=== PATIENT | male | born 1955 | race Caucasian/White ===

== ENCOUNTER 2018-01-21 16:58 | Inpatient (IN) | payer BC ==
[~2018-01-21] VITALS: Ht 170.2 cm; Wt 130.6 kg
[2018-01-21 17:07] VITALS: BP_SYST 133
[2018-01-21 17:36] LABS: BASOPHILS # (AUTO) 0.1 K/uL (0.0-0.2); BASOPHILS % (AUTO) 1.1 % (0.0-2.0); EOSINOPHILS # (AUTO) 0.2 K/uL (0.0-0.4); HEMATOCRIT 43.4 % (36-54); HEMOGLOBIN 14.2 g/dL (14.0-18.0); MEAN CORPUSCULAR HEMOGLOBIN 28 pg (27-31); MEAN CORPUSCULAR HGB CONC 33 % (32-36); MEAN CORPUSCULAR VOLUME 87 fL (79.0-98.0); MONOCYTES # (AUTO) 0.7 K/uL (0.0-1.0); MONOCYTES % (AUTO) 8.2 % (1.7-9.3); NEUTROPHILS # (AUTO) 5.7 K/uL (1.8-7.7); NEUTROPHILS % (AUTO) 65.7 % (40.0-70.0); PLATELET COUNT (AUTO) 269 K/uL (130-430); RED BLOOD CELL COUNT(AUTO) 4.99 MIL/uL (4.2-6.2); RED CELL DISTRIBUTION WIDTH 12.7 % (9.0-15.0); WHITE BLOOD COUNT (AUTO) 8.7 K/uL (4.8-10.8)
[2018-01-21 17:50] LABS: CALCIUM 9.6 mg/dL (8.4-11.0); CREATININE 1.03 mg/dL (0.55-1.30); POTASSIUM 3.9 mmol/L (3.5-5.1)
[2018-01-21 17:55] LABS: ALBUMIN 3.9 g/dL (3.4-4.8); TOTAL BILIRUBIN 0.4 mg/dL (0.0-1.0)
[2018-01-21 17:55] LABS: BILIRUBIN,URINE NEGATIVE (NEGATIVE); BLOOD, URINE NEGATIVE (NEGATIVE); CLARITY/URINE CLEAR (CLEAR); COLOR,URINE YELLOW (YELLOW); GLUCOSE,URINE NEGATIVE (NEGATIVE); KETONES,URINE NEGATIVE (NEGATIVE); LEUKOCYTE ESTERASE ,URINE NEGATIVE (NEGATIVE); NITRITE, URINE NEGATIVE (NEGATIVE); PROTEIN URINE NEGATIVE (NEGATIVE); UROBILINOGEN,URINE 0.2 (0.2-1.0)
[2018-01-21] MEDS ORDERED: ASPIRIN 81 MG TAB.CHEW PO ONE (19:30)
[2018-01-21] MEDS ORDERED: NITROGLYCERIN 1 INCH (GM) OINT. TP ONE (19:30)
[2018-01-21] MEDS ORDERED: METF-510 PO (19:50)
[2018-01-21] MEDS ORDERED: GLUXR500 PO (19:50)
[2018-01-21] MEDS ORDERED: GLIP2.5T3 PO (19:51)
[2018-01-21] MEDS ORDERED: SIMV10TA2 PO (19:51)
[2018-01-21] MEDS ORDERED: ASPI-1063 PO (19:51)
[2018-01-21 20:00] VITALS: BP_SYST 138
[2018-01-21 20:08] VITALS: BP_SYST 138
[2018-01-21] MEDS ORDERED: POTASSIUM CHLORIDE 20 MEQ TAB.PRT.SR PO PRN (20:15)
[2018-01-21] MEDS ORDERED: DEXTROSE 50% JECT 50 ML DISP.SYRIN IVP PRN (20:15)
[2018-01-21] MEDS ORDERED: ONDANSETRON HCL 4 MG/2 ML VIAL IVP PRN (20:15)
[2018-01-21] MEDS ORDERED: MUPIROCIN 2% TOPICAL OINTMENT 22 GM NS PRN (20:15)
[2018-01-21] MEDS ORDERED: DOCUSATE SODIUM 100 MG CAPSULE PO PRN (20:15)
[2018-01-21] MEDS ORDERED: ZOLPIDEM TARTRATE 5 MG TABLET PO PRN (20:15)
[2018-01-21] MEDS ORDERED: MAGNESIUM SULFATE 50 ML IV PRN (20:15)
[2018-01-21] MEDS ORDERED: INSULIN ASPART 100 UNITS/ML, 10 ML VIAL (NovoLOG) SUBCUT PRN (20:15)
[2018-01-21] MEDS ORDERED: LORazepam 2 MG/ML VIAL IVP PRN (20:15)
[2018-01-21] MEDS ORDERED: MORPHINE 2 MG/ML INJ. SYRINGE IVP PRN ×2 (20:15)
[2018-01-21] MEDS ORDERED: ACETAMINOPHEN 325 MG TABLET PO PRN (20:15)
[2018-01-21] MEDS: NACL 0.9% 1,000 ML IV SCH (20:59)
[2018-01-21] MEDS ORDERED: SIMVASTATIN 10 MG TABLET PO SCH (21:00)
[2018-01-21] MEDS: HEPARIN SODIUM,PORCINE 5000 UNITS/ML VIAL SUBCUT SCH (23:29)
[2018-01-22 05:38] VITALS: BP_SYST 105
[2018-01-22 07:02] LABS: BASOPHILS % (AUTO) 0.7 % (0.0-2.0); EOSINOPHILS # (AUTO) 0.2 K/uL (0.0-0.4); EOSINOPHILS % (AUTO) 3.4 % (0.0-4.0); HEMATOCRIT 36.6 % (36-54); HEMOGLOBIN 12.6 g/dL (14.0-18.0); LYMPHOCYTES # (AUTO) 2.1 K/uL (1.0-5.5); LYMPHOCYTES % (AUTO) 32.2 % (20.5-51.5); MEAN CORPUSCULAR HEMOGLOBIN 30 pg (27-31); MEAN CORPUSCULAR HGB CONC 34 % (32-36); MEAN CORPUSCULAR VOLUME 86 fL (79.0-98.0); MONOCYTES # (AUTO) 0.7 K/uL (0.0-1.0); MONOCYTES % (AUTO) 10.6 % (1.7-9.3); NEUTROPHILS # (AUTO) 3.4 K/uL (1.8-7.7); NEUTROPHILS % (AUTO) 53.1 % (40.0-70.0); PLATELET COUNT (AUTO) 186 K/uL (130-430); RED BLOOD CELL COUNT(AUTO) 4.25 MIL/uL (4.2-6.2); RED CELL DISTRIBUTION WIDTH 12.8 % (9.0-15.0)
[2018-01-22 07:07] LABS: WHITE BLOOD COUNT (AUTO) 6.4 K/uL (4.8-10.8)
[2018-01-22 07:10] LABS: ANION GAP 6 (5-15); CALCIUM 8.5 mg/dL (8.4-11.0); CHLORIDE 102 mmol/L (98-107); CREATININE 0.96 mg/dL (0.55-1.30); GLUCOSE 113 mg/dL (70-99); POTASSIUM 3.8 mmol/L (3.5-5.1); SODIUM SERUM 137 mmol/L (136-145); UREA NITROGEN, BLOOD 16 mg/dL (8-21)
[2018-01-22 07:12] LABS: GFR AFRICAN AMERICAN 102 mL/min (>90)
[2018-01-22 08:04] VITALS: BP_SYST 109
[2018-01-22] MEDS: PANTOPRAZOLE SODIUM 40 MG TAB PO SCH (09:00)
[2018-01-22] MEDS ORDERED: glipiZIDE XL 2.5 MG/TAB (GLUCOTROL XL) PO SCH (09:00)
[2018-01-22] MEDS: ASPIRIN 81 MG TABLET(ECOTRIN) PO SCH (09:21)
[2018-01-22] MEDS: HEPARIN SODIUM,PORCINE 5000 UNITS/ML VIAL SUBCUT SCH ×2 (09:31→21:01)
[2018-01-22] MEDS ORDERED: MULT PO (09:56)
[2018-01-22] MEDS ORDERED: VIT1TABL77 PO (09:56)
[2018-01-22] MEDS ORDERED: LISI-209 PO (09:56)
[2018-01-22] MEDS ORDERED: PIOG30TA70 PO (09:56)
[2018-01-22] MEDS ORDERED: GLIP10TA98 PO (10:00)
[2018-01-22] MEDS: NACL 0.9% 1,000 ML IV SCH ×2 (12:12→16:15)
[2018-01-22 12:28] VITALS: BP_SYST 123
[2018-01-22] MEDS ORDERED: glipiZIDE XL 5 MG TAB ( GLUCOTROL XL) PO ONE (12:30)
[2018-01-22] MEDS ORDERED: LISINOPRIL 5 MG TABLET PO ONE (12:30)
[2018-01-22] MEDS ORDERED: MULTIVITAMINS TAB 1 TABLET PO ONE (12:30)
[2018-01-22 16:23] VITALS: BP_SYST 128
[2018-01-22] MEDS ORDERED: ATORVASTATIN 20 MG TABLET PO SCH (17:45)
[2018-01-22 19:15] VITALS: BP_SYST 131
[2018-01-22] MEDS: glipiZIDE XL 5 MG TAB ( GLUCOTROL XL) PO SCH (21:04)
[2018-01-23 00:35] VITALS: BP_SYST 118
[2018-01-23] MEDS: NACL 0.9% 1,000 ML IV SCH (03:15)
[2018-01-23 07:04] LABS: BASOPHILS % (AUTO) 0.7 % (0.0-2.0); EOSINOPHILS # (AUTO) 0.2 K/uL (0.0-0.4); EOSINOPHILS % (AUTO) 3.8 % (0.0-4.0); HEMATOCRIT 39.5 % (36-54); HEMOGLOBIN 13.4 g/dL (14.0-18.0); LYMPHOCYTES # (AUTO) 1.7 K/uL (1.0-5.5); LYMPHOCYTES % (AUTO) 28.2 % (20.5-51.5); MEAN CORPUSCULAR HEMOGLOBIN 29 pg (27-31); MEAN CORPUSCULAR HGB CONC 34 % (32-36); MEAN CORPUSCULAR VOLUME 87 fL (79.0-98.0); MONOCYTES # (AUTO) 0.6 K/uL (0.0-1.0); NEUTROPHILS # (AUTO) 3.7 K/uL (1.8-7.7); NEUTROPHILS % (AUTO) 58.3 % (40.0-70.0); PLATELET COUNT (AUTO) 194 K/uL (130-430); RED BLOOD CELL COUNT(AUTO) 4.55 MIL/uL (4.2-6.2); RED CELL DISTRIBUTION WIDTH 12.8 % (9.0-15.0); WHITE BLOOD COUNT (AUTO) 6.2 K/uL (4.8-10.8)
[2018-01-23 07:38] LABS: CALCIUM 8.9 mg/dL (8.4-11.0); CREATININE 0.86 mg/dL (0.55-1.30)
[2018-01-23 08:15] VITALS: BP_SYST 129
[2018-01-23] MEDS: PANTOPRAZOLE SODIUM 40 MG TAB PO SCH (09:00)
[2018-01-23] MEDS: ASPIRIN 81 MG TABLET(ECOTRIN) PO SCH (09:00)
[2018-01-23] MEDS ORDERED: MULTIVITAMINS TAB 1 TABLET PO SCH (09:00)
[2018-01-23] MEDS: HEPARIN SODIUM,PORCINE 5000 UNITS/ML VIAL SUBCUT SCH (09:00)
[2018-01-23] MEDS: glipiZIDE XL 5 MG TAB ( GLUCOTROL XL) PO SCH (09:00)
[2018-01-23] MEDS ORDERED: LISINOPRIL 5 MG TABLET PO SCH (09:00)
[2018-01-23] MEDS ORDERED: PRO40 PO (09:15)
[2018-01-23 09:41] VITALS: BP_SYST 129
== END 2018-01-23 10:00 | disposition home or self-care (01) | DRG 392 ==
LOC: SED 16:58 → STU 19:32
PROVIDERS: ADMIT General Practice; ATTEND General Practice
DX: K21.9 Gastro-esophageal reflux disease without esophagitis (principal); E87.1 Hypo-osmolality and hyponatremia; Z68.42 Body mass index [BMI] 45.0-49.9, adult; I10 Essential (primary) hypertension; E78.5 Hyperlipidemia, unspecified; E66.9 Obesity, unspecified; E11.9 Type 2 diabetes mellitus without complications; Z79.899 Other long term (current) drug therapy
CPT/HCPCS: 36415; 71045; 80048; 80053; 81003; 82962; 83690-TC; 83735-TC; 84484; 85025; 93005; 93306; 99285; J1644; J1815; J3475; J7030